=== PATIENT | male | born 1980 | race Caucasian/White ===

== ENCOUNTER 2018-09-21 12:54 | Emergency (ER) | payer BC ==
[~2018-09-21] VITALS: Ht 170.2 cm; Wt 99.8 kg
[2018-09-21 13:20] LABS: HEMATOCRIT 51.6 % (42.0-52.0); HEMOGLOBIN 17.9 gm/dL (14.0-18.0); MCHC 34.7 g/dL (28.0-37.0); MCV 89.1 fL (80.0-100.0); MPV 9.8 fl. (7.2-11.1); NUCLEATED RBCS 0 /100WBC; PLATELET COUNT* 295 thou/uL (150-400); RDW-CV 13.4 % (10.5-14.5); WBC 16.6 thou/uL (4.0-11.0)
[2018-09-21 13:23] LABS: CALCIUM 9.4 mg/dL (8.5-10.1); CREATININE 1.3 mg/dL (0.6-1.3)
[2018-09-21 13:27] LABS: ALBUMIN 4.1 g/dL (3.4-5.0); TOTAL BILIRUBIN 0.9 mg/dL (<0.1-1.0); TOTAL PROTEIN 8.4 g/dL (6.4-8.2)
[2018-09-21 13:38] LABS: ABSOLUTE EOSINOPHILS 0.7 thou/uL (0.0-0.7); ABSOLUTE LYMPHOCYTES 6.5 thou/uL (0.8-5.3); ABSOLUTE MONOCYTES 0.2 thou/uL (0.0-1.2); ABSOLUTE NEUTROPHILS 9.3 thou/uL (1.6-8.1); PLATELET ESTIMATE ADEQUATE
[2018-09-21] MEDS ORDERED: NORCO 5-325 TA1 EAC1 PO (15:27)
[2018-09-21 15:38] VITALS: BP 113/71
== END 2018-09-21 15:40 | disposition home or self-care (01) ==
LOC: M.ERS 12:54
PROVIDERS: Emergency Medicine Emergency Medical Services
DX: S32.000A Wedge compression fracture of unspecified lumbar vertebra, initial encounter for closed fracture (principal); W14.XXXA Fall from tree, initial encounter; Y93.89 Activity, other specified; Y92.89 Other specified places as the place of occurrence of the external cause; Y99.8 Other external cause status; F17.210 Nicotine dependence, cigarettes, uncomplicated; Z90.49 Acquired absence of other specified parts of digestive tract